=== PATIENT | male | born 1955 | race Caucasian/White ===

== ENCOUNTER 2016-09-18 16:25 | Emergency (ER) | payer MEDICAID ==
[2016-09-18] MEDS ORDERED: KETOROLAC TROMETH 60MG/2ML VIAL IM ONE (19:15)
[2016-09-18] MEDS ORDERED: methylPREDNISolone SOD SUCC 125 MG/2 ML VL IM ONE (19:15)
[2016-09-18 19:59] VITALS: BP 132/60
== END 2016-09-18 20:00 | disposition home or self-care (01) ==
LOC: ER 16:36
DX: S93.601A Unspecified sprain of right foot, initial encounter (principal); M10.071 Idiopathic gout, right ankle and foot; W50.2XXA Accidental twist by another person, initial encounter; Y93.89 Activity, other specified; Y99.8 Other external cause status; Y92.89 Other specified places as the place of occurrence of the external cause
CPT/HCPCS: 73630; 96372; 99284; J1885; J2930